=== PATIENT | male | born 1970 | race African-American/Black ===

== ENCOUNTER → 2018-02-16 | Outpatient (CLI) | payer OTHER ==
[2018-02-16 16:45] LABS: ERYTHROCYTE SEDIMENTATION RATE 4 mm/hr (0-15)
[2018-02-16 17:00] LABS: FREE T4 0.91 NG/DL (0.76-1.46); RHEUMATOID FACTOR QUANT < 10.0 IU/ML (<15.0); TOTAL PROTEIN 7.2 GM/DL (6.4-8.2)
[2018-02-16 17:15] LABS: FOLATE 12.9 NG/ML
[2018-02-16 17:55] LABS: ESTIMATED AVERAGE GLUCOSE 111 MG/DL (60-110); HEMOGLOBIN A1c 5.5 %
[2018-02-18 14:23] LABS: ANTINUCLEAR ANTIBODIES DIRECT Negative (Negative)
[2018-02-20 13:30] LABS: ALBUMIN 4.36 GM/DL (3.29-5.55); ALBUMIN % 60.5 % (55.8-66.1); ALPHA-1-GLOBULIN % 3.3 % (2.9-4.9); ALPHA-1-GLOBULINS 0.24 GM/DL (0.17-0.41); ALPHA-2-GLOBULINS 0.59 GM/DL (0.42-0.99); ALPHA-2-GLOBULINS % 8.2 % (7.1-11.8); BETA-1-GLOBULINS 0.44 GM/DL (0.28-0.60); BETA-1-GLOBULINS % 6.1 % (4.7-7.2); BETA-2-GLOBULINS 0.42 GM/DL (0.19-0.55); BETA-2-GLOBULINS % 5.9 % (3.2-6.5); GAMMA GLOBULINS 1.15 GM/DL (0.65-1.58)
== END ==
LOC: M LAB 14:17
DX: G62.9 Polyneuropathy, unspecified (principal)
CPT/HCPCS: 82746

== ENCOUNTER → 2018-02-21 | Outpatient (CLI) | payer OTHER ==
[~2018-02-21] MED LIST: METHACHOLINE KIT (J7674) INH
== END ==
LOC: M CARPUL 09:33
DX: R06.00 Dyspnea, unspecified (principal)
CPT/HCPCS: J7674

== ENCOUNTER → 2018-05-03 | Outpatient (CLI) | payer OTHER ==
[2018-05-04 14:24] LABS: C-PEPTIDE 1.5 ng/mL (1.1-4.4)
[2018-05-04 14:24] LABS: INSULIN LEVEL 4.8 uIU/mL (2.6-24.9)
== END ==
LOC: M LRY 07:41
DX: M25.78 Osteophyte, vertebrae (principal); M47.896 Other spondylosis, lumbar region; E66.9 Obesity, unspecified
CPT/HCPCS: 83525